=== PATIENT | male | born 1980 | race Hispanic/Latino ===

== ENCOUNTER 2023-06-21 11:16 | Emergency (ER) | payer BC ==
[~2023-06-21] VITALS: Ht 172.7 cm; Wt 89.8 kg
[2023-06-21] MEDS: METOPROLOL TARTRATE 1 MG/ML 5ML VIAL IV ONE (12:09)
[2023-06-21 12:18] LABS: BASOPHILS # (AUTO) 0.04 K/uL (0.00-0.20); BASOPHILS % (AUTO) 0.6 % (0.0-5.0); EOSINOPHILS % (AUTO) 1.5 % (0.0-8.0); HEMATOCRIT 45.6 % (42-54); IMMATURE GRANULOCYTE ABSOLUTE 0.03 K/uL (0-1); LYMPHOCYTES # (AUTO) 1.6 K/uL (1.0-4.8); LYMPHOCYTES % (AUTO) 24.4 % (21.0-51.0); MEAN CORPUSCULAR HEMOGLOBIN 33.1 pg (27.0-33.0); MEAN CORPUSCULAR HGB CONC 37.9 g/dL (32.0-36.0); MEAN CORPUSCULAR VOLUME 87.4 fL (79-99); MONOCYTES # (AUTO) 0.5 K/uL (0.1-1.0); MONOCYTES % (AUTO) 7.7 % (3.0-13.0); NEUTROPHILS # (AUTO) 4.2 K/uL (1.8-7.7); NEUTROPHILS % (AUTO) 65.3 % (40.0-77.0); PLATELET COUNT (AUTO) 163 K/uL (130-400); RED BLOOD CELL COUNT(AUTO) 5.22 MIL/uL (4.50-6.20); RED CELL DISTRIBUTION WIDTH 11.6 % (11.0-15.5); WHITE BLOOD COUNT (AUTO) 6.5 K/uL (4.8-10.8)
[2023-06-21 12:34] LABS: CREATININE 0.8 mg/dL (0.5-1.3)
[2023-06-21 12:39] LABS: ALBUMIN 4.4 g/dL (3.5-5.0); BILIRUBIN,TOTAL 0.9 mg/dL (0.2-1.0); TOTAL PROTEIN, SERUM 7.8 g/dL (6.0-8.3)
[2023-06-21 12:45] LABS: B-TYPE NATRIURETIC PEPTIDE 5 pg/mL (0-100)
[2023-06-21 13:02] VITALS: BP 134/98; PULSE 85; RESP 16; O2SAT 100
[2023-06-21] MEDS ORDERED: AMLO-258 PO (13:21)
== END 2023-06-21 13:42 | disposition home or self-care (01) ==
LOC: EDH 11:16
DX: I10 Essential (primary) hypertension (principal); R00.0 Tachycardia, unspecified; E66.9 Obesity, unspecified; Z68.30 Body mass index [BMI] 30.0-30.9, adult
CPT/HCPCS: 99284; 96374; 71045; 84484; 80053; 83880; 85025; 36415; 93005; J3490